=== PATIENT | male | born 1965 | race African-American/Black ===

== ENCOUNTER 2018-11-27 18:39 | Emergency (ER) | payer OTHER ==
[~2018-11-27] VITALS: Ht 177.8 cm; Wt 97.7 kg
[2018-11-27] MEDS ORDERED: LORazepam 1 MG TABLET PO ONE (20:15)
[2018-11-27] MEDS ORDERED: LIDOCAINE 1% 10 ML VIAL INJ ONE (21:00)
[2018-11-27] MEDS ORDERED: OxyCODONE HCL/ACETAMINOPHEN 5-325 MG TABLET PO ONE ×3 (22:00)
[2018-11-27] MEDS ORDERED: BACITRACIN 0.9 GM PACKET OINTMENT TP ONE (23:00)
[2018-11-27] MEDS ORDERED: AMOX TR/POT CLAV 875 MG/125 MG TABLET PO ONE (23:00)
[2018-11-27 23:12] VITALS: BP 158/88
== END 2018-11-27 23:30 | disposition home or self-care (01) ==
LOC: EMS 18:41
DX: S60.444A External constriction of right ring finger, initial encounter (principal); M79.89 Other specified soft tissue disorders; F17.210 Nicotine dependence, cigarettes, uncomplicated; F12.90 Cannabis use, unspecified, uncomplicated; F15.90 Other stimulant use, unspecified, uncomplicated; W49.04XA Ring or other jewelry causing external constriction, initial encounter; Y93.89 Activity, other specified; Y92.89 Other specified places as the place of occurrence of the external cause; Y99.8 Other external cause status
CPT/HCPCS: 99284; 99406; J3490

== ENCOUNTER 2018-12-07 12:25 | Emergency (ER) | payer OTHER ==
[~2018-12-07] VITALS: Ht 177.8 cm; Wt 95.5 kg
[2018-12-07] MEDS ORDERED: BACITRACIN 0.9 GM PACKET OINTMENT TP ONE (13:45)
[2018-12-07 14:25] VITALS: BP 144/81
== END 2018-12-07 14:31 | disposition home or self-care (01) ==
LOC: EMS 12:27
DX: S61.214D Laceration without foreign body of right ring finger without damage to nail, subsequent encounter (principal); F12.90 Cannabis use, unspecified, uncomplicated; F15.90 Other stimulant use, unspecified, uncomplicated; F17.210 Nicotine dependence, cigarettes, uncomplicated; W45.8XXD Other foreign body or object entering through skin, subsequent encounter